=== PATIENT | male | born 1970 | race Caucasian/White ===

== ENCOUNTER 2018-05-27 12:33 | Emergency (ER) | payer OTHER ==
[~2018-05-27] VITALS: Ht 167.6 cm; Wt 70.8 kg
[2018-05-27] MEDS ORDERED: ONDANSETRON HCL/PF 4 MG/2 ML VIAL IV ONE (13:00)
[2018-05-27] MEDS ORDERED: LORAZEPAM INJ 2 MG/ML VIAL IV ONE (13:00)
[2018-05-27] MEDS ORDERED: ONDANSETRON HCL/PF 4 MG/2 ML VIAL ONE (13:00)
[2018-05-27] MEDS ORDERED: LORAZEPAM INJ 2 MG/ML VIAL ONE (13:01)
--- NOTE | 2018-05-27 13:04 | NUR ---
Sob and fever since yesterday, was seen at [place] [facility] yesterday. -FEVER ON ADMISSION. APPEARS VERY ANXIOUS. PT IS AOX4, AMB, VSS, RR EVEN AND UNLABORED. SKIN WARM DRY INTACT. DENIES DIZZINESS, WEAKNESS, N/V. SON AT BEDSIDE. READY FOR EVAL.
--- NOTE | 2018-05-27 13:37 | NUR ---
Patient discharged to home in stable condition. Written and verbal after care instructions given. Patient verbalizes understanding of instruction.
[2018-05-27 14:07] VITALS: BP 127/33
== END 2018-05-27 13:37 | disposition home or self-care (01) ==
LOC: ER 12:35
DX: F41.9 Anxiety disorder, unspecified (principal)
CPT/HCPCS: 96374; 96375; 99283; A4606; J2060; J2405; Z7610